=== PATIENT | male | born 1985 | race Caucasian/White ===

== ENCOUNTER 2019-06-19 15:27 | Emergency (ER) | payer SELFPAY ==
[2019-06-19 15:58] VITALS: BP 121/73
--- NOTE | 2019-06-19 16:34 | UC ---
Skin Complaint HPI - HPI Summary HPI Summary: 34-year-old male presents for an infection of the left foot. States 2 weeks ago started with itching and cracking of the skin between his toes which he assumed was athlete's foot. Over the past week he has started developing pain, redness, swelling, and a few blistered lesions that have opened and are draining clear fluid. History of staph infection in the same foot in the past. Patient moved to [facility] 1 week ago from [place] and does not currently have a PCP. Denies fever , chills, calf pain/tenderness, or leg swelling. - History of Current Complaint Chief Complaint: UCSkin Time Seen by Provider: 06/19/19 16:09 Stated Complaint: RASH Hx Obtained From: Patient Pain Intensity: 6 - Allergy/Home Medications Allergies/Adverse Reactions: Allergies Allergy/AdvReac Type Severity Reaction Status Date / Time No Known Allergies Allergy Verified 06/19/19 15:55 PMH/Surg Hx/FS Hx/Imm Hx Previously Healthy: Yes - Denies significant PMH - Surgical History Surgical History: None - Family History Known Family History: Positive: Non-Contributory - Social History Occupation: Unemployed Lives: Alone Alcohol Use: None Substance Use Type: None Smoking Status (MU): Heavy Every Day Tobacco Smoker Amount Used/How Often: 1-1 1/2ppd Household Exposure Type: Cigarettes Review of Systems All Other Systems Reviewed And Are Negative: Yes Constitutional: Negative: Fever, Chills Skin: Positive: Other - See HPI Respiratory: Negative: Shortness Of Breath Cardiovascular: Negative: Chest Pain Gastrointestinal: Positive: Negative Musculoskeletal: Negative: Arthralgia, Calf Tenderness, Decreased ROM Neurological: Positive: Negative Physical Exam - Summary Physical Exam Summary: GENERAL APPEARANCE: Well developed, well nourished, alert and cooperative, and appears to be in no acute distress. CARDIAC: Normal S1 and S2. No S3, S4 or murmurs. Rhythm is regular. There is no peripheral edema, cyanosis or pallor. Extremities are warm and well perfused. Capillary refill is less than 2 seconds. Peripheral pulses intact. LUNGS: Clear to auscultation without rales, rhonchi, wheezing or diminished breath sounds. ABDOMEN: Positive bowel sounds. Soft, nondistended, nontender. No guarding or rebound. No masses or hepatosplenomegally. MUSKULOSKELETAL: ROM intact to all extremities. No joint erythema or tenderness. Normal muscular development. Normal gait. EXTREMITIES: Interdigital erythema of the left foot with cracked and weeping skin. Mild erythema noted to the dorsal left foot with a red streak from the mid foot to ankle. Few scattered discrete vesicular lesions to the dorsal left foot with clear drainage. SKIN: Skin normal color, texture and turgor. Triage Information Reviewed: Yes Vital Signs: Initial Vital Signs Temp 99.2 F 06/19/19 15:52 Pulse 96 06/19/19 15:52 Resp 20 06/19/19 15:52 BP 121/73 06/19/19 15:52 Pulse Ox 100 06/19/19 15:52 Vital Signs Reviewed: Yes Course/Dx - Course Course Of Treatment: 34-year-old male presents for an infection of the left foot. States 2 weeks ago started with itching and cracking of the skin between his toes which he assumed was athlete's foot. Over the past week he has started developing pain, redness, swelling, and a few blistered lesions that have opened and are draining clear fluid. History of staph infection in the same foot in the past. Patient moved to [facility] 1 week ago from [place] and does not currently have a PCP. Denies fever , chills, calf pain/tenderness, or leg swelling. Afebrile. Vital signs stable. Patient had interdigital erythema of the left foot with cracked and weeping skin. Mild erythema noted to the dorsal left foot with a red streak from the mid foot to ankle. Few scattered discrete vesicular lesions to the dorsal left foot with clear drainage. Remainder of exam unremarkable. Discussed with the patient that he has likely developed a secondary bacterial infection on top of the tinea pedis. Will treat him with Bactrim DS 1 tab twice daily for 7 days as well as have him take fluconazole 150 mg weekly for 2 weeks to treat for the tinea infection. He is to follow up at the [facility] in 3-5 days for recheck of symptoms. Anticipatory guidance and warning symptoms reviewed with patient. Verbalizes understanding and agrees with POC. - Differential Diagnoses - Skin Complaint Differential Diagnoses: Cellulitis, Contact Dermatitis, Local Allergic Reaction , Tinea - Diagnoses Provider Diagnosis: Tinea pedis, Left foot infection Discharge ED - Sign-Out/Discharge Documenting (check all that apply): Patient Departure All imaging exams completed and their final reports reviewed: No Studies - Discharge Plan Condition: Stable Disposition: HOME Prescriptions: Fluconazole 150 mg PO WEEKLY #2 tablet Sulfamethox/Trimethoprim DS* [Bactrim DS 800/160 TAB*] 1 tab PO BID #14 tab Patient Education Materials: Cellulitis (ED), Skin Yeast Infection (ED) Referrals: No Primary Care Phys,NOPCP [Primary Care Provider] - [facility] [Outside] - 3 Days (Call for an appointment.) Additional Instructions: It appears you have developed a secondary bacterial infection on top of the athlete's foot. We will start you on an antibiotic for the infection. Start Bactrim DS 1 tab twice a day for 7 days. Wash your foot daily with a mild soap and water. Be sure to thoroughly dry the skin. Do not reuse the washcloth or towel without laundering. Take fluconazole 150 mg 1 tablet once a week for 2 weeks to treat the athlete's foot. Use acetaminophen (Tylenol) or ibuprofen (Advil, Motrin) according to directions as needed for pain. Follow up in the [facility] in 3-5 days for recheck of symptoms. Call first thing tomorrow for an appointment. Seek immediate medical attention in the emergency room if you develop a fever greater than 100.5 F, have severe pain not managed with pain medication, you have redness that rapidly spreads, swelling of the foot, or any worsening of symptoms. - Billing Disposition and Condition Condition: STABLE Disposition: Home
== END 2019-06-19 17:07 | disposition home or self-care (01) ==
LOC: UCEAST 15:27
DX: B35.3 Tinea pedis (principal); L08.9 Local infection of the skin and subcutaneous tissue, unspecified; R21 Rash and other nonspecific skin eruption; F17.210 Nicotine dependence, cigarettes, uncomplicated
CPT/HCPCS: 99202; G0463

== ENCOUNTER 2019-07-03 15:24 | Emergency (ER) | payer SELFPAY ==
[2019-07-03 15:32] VITALS: BP 117/67
--- NOTE | 2019-07-03 16:39 | UC ---
Skin Complaint HPI - HPI Summary HPI Summary: Patient is a 34yo male presenting with cousin and girlfriend for itching, burning, flaking of L toes and foot x2-3 weeks. Patient states he was seen here 2 weeks ago and treated for yeast infection with overlying bacterial infection. States he was given fluconazole and bactrim. Patient states symptoms improved for first few days but never went away, but that symptoms are worsening now. Patient notes watery drainage from a couple spots on dorsal foot. Denies purulent drainage and bleeding. Denies redness and swelling of foot. Denies pain up leg. Denies fever and chills. Denies n/v. Patient states he has been putting nailpolish on it because he heard that treats ringworm. Patient states he just moved here form [place] and does not have a pcp yet. Does note that he has a [facility] appt on Wednesday for recheck of his foot. - History of Current Complaint Chief Complaint: UCLowerExtremity Time Seen by Provider: 07/03/19 15:53 Stated Complaint: L FOOT PAIN Hx Obtained From: Patient Onset/Duration: Gradual Onset, Lasting Weeks Timing: Constant Current Severity: Moderate Pain Intensity: 6 Pain Scale Used: 0-10 Numeric - Allergy/Home Medications Allergies/Adverse Reactions: Allergies Allergy/AdvReac Type Severity Reaction Status Date / Time No Known Allergies Allergy Verified 07/03/19 15:32 Home Medications: Home Medications NK [No Home Medications Reported] 07/03/19 [History Confirmed 07/03/19] PMH/Surg Hx/FS Hx/Imm Hx - Surgical History Surgical History: None - Family History Known Family History: Positive: Non-Contributory - Social History Occupation: Employed Full-time Lives: With Family Alcohol Use: None Substance Use Type: None Smoking Status (MU): Heavy Every Day Tobacco Smoker Amount Used/How Often: 1-1 1/2ppd Household Exposure Type: Cigarettes Review of Systems All Other Systems Reviewed And Are Negative: No Constitutional: Positive: Negative Skin: Positive: Other - pruritic fungal rash on L foot/toes Respiratory: Positive: Negative Cardiovascular: Positive: Negative Gastrointestinal: Positive: Negative. Negative: Vomiting, Nausea Musculoskeletal: Positive: Negative Neurological: Positive: Negative Physical Exam Triage Information Reviewed: Yes Appearance: Well-Appearing, No Pain Distress, Well-Nourished Vital Signs: Initial Vital Signs Temp 99.8 F 11/11/19 15:26 Pulse 80 07/03/19 15:26 Resp 16 07/03/19 15:26 BP 117/67 07/03/19 15:26 Pulse Ox 100 07/03/19 15:26 Vital Signs Reviewed: Yes Eyes: Positive: Conjunctiva Clear ENT: Positive: Hearing grossly normal Neck: Positive: Supple Respiratory: Positive: No respiratory distress Cardiovascular: Positive: Pulses Normal - strong pedal pulses, Brisk Capillary Refill Musculoskeletal Exam: Normal Musculoskeletal: Positive: Strength Intact, ROM Intact, No Edema Neurological Exam: Other - sensation grossly intact Neurological: Positive: Alert Psychological: Positive: Age Appropriate Behavior Skin: Positive: Other - interdigital erythema and scaling noted of L toes. yellow discoloation, thickening, and crumbling noted of toenails, sole, and heel of L foot. multiple scabbed areas noted over toes from scratching. two small scaling lesion weeping minimal amount of serous fluid noted on dorsal forefoot. no signifcant erythema, or warmth. no red streaking. no obvious sign of bacterial infection Course/Dx - Course Course Of Treatment: I instructed the patient to soak the foot in warm epsom salt baths 2-3x daily and to apply clotrimazole cream twice daily for 2 weeks. Also directed the patient to attend his care [facility] appt on Wednesday for recheck. Educated on s/s of bacterial infection and to go to ED if they occur. I gave him derm referral and physician referral for follow up with symptoms persist. Patient voiced understanding and agreed with treatment plan. - Diagnoses Provider Diagnosis: Infection, fungal, left foot Discharge ED - Sign-Out/Discharge Documenting (check all that apply): Patient Departure All imaging exams completed and their final reports reviewed: No Studies - Discharge Plan Condition: Stable Disposition: HOME Patient Education Materials: Athlete's Foot (ED) Forms: *Work Release Referrals: Hugo Tarango MD [Medical Doctor] - If Needed [facility] [Outside] - 2 Weeks Additional Instructions: It is recommended that you soak your foot in warm water with epsom salt 2-3 times daily. Apply Lotrimin cream for Athlete's foot twice daily for 2 weeks after you soak the foot. You can find this over the counter. The generic version is clotrimazole and often cheaper. Follow up with your [facility] appointment on Wednesday for re-check of the foot. A dermatology referral is also listed below is your symptoms persist. Go to the emergency room is you experience severe pain, increasing redness of the foot, swelling, fever, or nausea and vomiting. Contact the physician referral listed below to receive your routine check up and establish yourself with a physician here in [place]. - Billing Disposition and Condition Condition: STABLE Disposition: Home - Attestation Statements Provider Attestation: patient not seen by me chart reviewed mary
== END 2019-07-03 16:41 | disposition home or self-care (01) ==
LOC: UCEAST 15:24
DX: B35.3 Tinea pedis (principal); F17.200 Nicotine dependence, unspecified, uncomplicated
CPT/HCPCS: 99211; G0463

== ENCOUNTER 2019-07-10 10:58 | Emergency (ER) | payer SELFPAY ==
--- NOTE | 2019-07-10 11:50 | ED ---
Lower Extremity - HPI Summary HPI Summary: Patient is a 34 y/o M presenting to the ED for a chief complaint of swelling in the left foot for the last month. Patient is present with family. For the last month, the patient has had left foot pain and swelling which has worsened since initial onset. The patient was previously seen at [facility] a few weeks ago and prescribed Bactrim, a cream for athlete's foot, and told to have Epsom salt baths for his left foot. Patient did not follow up with a PCP due to improvement of the left foot and changes to his insurance. He is currently complaining of erythema, swelling, itchiness, and pain in the left foot. Patient denies shortness of breath or chest pain. Patient denies any aggravating or alleviating factors. PMHx is significant for Lyme disease and FMHx is significant for cardiac disease and aneurysm, but denies any PSHx. Patient is a light every day smoker, but denies drug or alcohol use. - History of Current Complaint Chief Complaint: EDExtremityLower Stated Complaint: LT FOOT INF PER PT Time Seen by Provider: 07/10/19 11:42 Hx Obtained From: Patient Mechanism Of Injury: Other - None Onset of Pain: Immediate Onset/Duration: Still Present Severity Initially: Moderate Severity Currently: Moderate Pain Intensity: 6 Pain Scale Used: 0-10 Numeric Timing: Constant Associated Signs And Symptoms: Positive: Swelling, Redness, Other - Positive left foot pain and itchiness; negative chest pain or shortness of breath Aggravating Factor(s): Nothing Alleviating Factor(s): Nothing Able to Bear Weight: Yes - Allergies/Home Medications Allergies/Adverse Reactions: Allergies Allergy/AdvReac Type Severity Reaction Status Date / Time No Known Allergies Allergy Verified 07/10/19 11:04 Home Medications: Home Medications buPROPion SR TAB* [Wellbutrin SR TAB*] 150 mg PO BID 07/10/19 [History Confirmed 07/10/19] PMH/Surg Hx/FS Hx/Imm Hx Previously Healthy: Yes Endocrine/Hematology History: Reports: Other Endocrine/Hematological Disorders - Lyme disease Denies: Hx Diabetes Cardiovascular History: Denies: Hx Hypercholesterolemia, Hx Hypertension Sensory History: Denies: Hx Legally Blind, Hx Deafness Opthamlomology History: Denies: Hx Legally Blind EENT History: Denies: Hx Deafness - Surgical History Surgical History: None Surgery Procedure, Year, and Place: None Infectious Disease History: No Infectious Disease History: Denies: Traveled Outside the [place] in Last 30 Days - Family History Known Family History: Positive: Cardiac Disease, Other - Aneurysm - Social History Occupation: Unemployed Lives: With Family Alcohol Use: None Hx Substance Use: No Substance Use Type: Reports: None Hx Tobacco Use: Yes Smoking Status (MU): Light Every Day Tobacco Smoker Amount Used/How Often: 1-1 1/2ppd Review of Systems Negative: Chest Pain Negative: Shortness Of Breath Positive: Myalgia - Left foot, Edema - Left foot Positive: Other - Positive erythema and itchiness of left foot All Other Systems Reviewed And Are Negative: Yes Physical Exam - Summary Physical Exam Summary: VITAL SIGNS: Reviewed. GENERAL: Patient is a well-developed and nourished MALE who is lying comfortable in the stretcher. Patient is not in any acute respiratory distress. HEAD AND FACE: No signs of trauma. No ecchymosis, hematomas or skull depressions. No sinus tenderness. EYES: PERRLA, EOMI x 2, No injected conjunctiva, no nystagmus. EARS: Hearing grossly intact. Ear canals and tympanic membranes are within normal limits. MOUTH: Oropharynx within normal limits. NECK: Supple, trachea is midline, no adenopathy, no JVD, no carotid bruit, no c- spine tenderness, neck with full ROM. CHEST: Symmetric, no tenderness at palpation. LUNGS: Clear to auscultation bilaterally. No wheezing or crackles. CVS: Regular rate and rhythm, S1 and S2 present, no murmurs or gallops appreciated. ABDOMEN: Soft, non-tender. No signs of distention. No rebound, no guarding, and no masses palpated. Bowel sounds are normal. EXTREMITIES: FROM in all major joints, no edema, no cyanosis or clubbing. NEURO: Alert and oriented x 3. No acute neurological deficits. Speech is normal and follows commands. SKIN: Dry and warm. Erythema in the left dorsal aspect of the left foot and the left toes. Good pulses and capillary refill. Triage Information Reviewed: Yes Vital Signs On Initial Exam: Initial Vitals Temp Pulse Resp BP Pulse Ox 98.9 F 89 15 133/87 98 07/10/19 11:00 07/10/19 11:00 07/10/19 11:07/10/19 11:00 07/10/19 11:00 Vital Signs Reviewed: Yes Procedures - Sedation Patient Received Moderate/Deep Sedation with Procedure: No Diagnostics - Vital Signs Vital Signs Temp Pulse Resp BP Pulse Ox 07/10/19 11:00 98.9 F 89 15 133/87 98 - Laboratory Result Diagrams: 07/10/19 12:34 07/10/19 12:34 Lab Statement: Any lab studies that have been ordered have been reviewed, and results considered in the medical decision making process. Lower Extremity Course/Dx - Course Assessment/Plan: Patient is a 35-year-old male who presents to the emergency department with a chief complaint of redness, pain, and swelling in the left foot. Blood test results are without any significant abnormality. I believe that the patient has a localized infection and cellulitis. Therefore the patient will be given a prescription for Keflex and discharged home to follow- up with his primary care physician. I discussed all the findings and test results with the patient. Patient was instructed to return to the emergency room immediately if any of the symptoms return or worsen. Plan of care was discussed with the patient who understands and agrees. All questions were answered at the patient's satisfaction. There were no further complaints or concerns. Lung exam before discharge: CTA B/L. Good air exchange. No wheezing or crackles heard. CVS: S1 and S2 present. No murmurs appreciated. Patient is alert and oriented x 3. Patient is hemodynamically stable. Patient will be discharged home to follow up with his PCP in the next 2-3 days. - Diagnoses Provider Diagnoses: Cellulitis Discharge ED - Sign-Out/Discharge Documenting (check all that apply): Patient Departure - Discharge - Discharge Plan Condition: Stable Disposition: HOME Prescriptions: Cephalexin CAP* [Keflex CAP*] 500 mg PO QID #40 cap Patient Education Materials: Cellulitis (ED) Referrals: [facility] [Outside] Additional Instructions: FOLLOW UP WITH YOUR PRIMARY CARE PROVIDER WITHIN 3 DAYS. RETURN TO THE ED FOR ANY WORSENING OR NEW SYMPTOMS. - Billing Disposition and Condition Condition: STABLE Disposition: Home - Attestation Statements Document Initiated by Scribe: Yes Documenting Scribe: Clare Milton Provider For Whom Scribe is Documenting (Include Credential): Surjit Camejo MD Scribe Attestation: IClare, scribed for Surjit Camejo MD on 07/10/19 at 1802. Scribe Documentation Reviewed: Yes Provider Attestation: The documentation as recorded by the scribe, Clare Milton accurately reflects the service I personally performed and the decisions made by me, Surjit Camejo MD Status of Scribe Document: Viewed
[2019-07-10 12:47] LABS: ABS Basophils 0.1 10^3/ul (0-0.2); ABS Eosinophils 0.5 10^3/ul (0-0.6); ABS Lymphocytes 2.1 10^3/ul (1.0-4.8); ABS Monocytes 0.7 10^3/ul (0-0.8); ABS Neutrophils 5.1 10^3/ul (1.5-7.7); Eosinophil % 5.7 %; Hematocrit 48 % (42-52); Hemoglobin 16.5 g/dL (14.0-18.0); Lymphocyte % 25.2 %; Mean Corpuscular HGB Conc 35 g/dL (31-36); Mean Corpuscular Hemoglobin 32 pg (27-31); Mean Corpuscular Volume 93 fL (80-94); Mean Platelet Volume 8.8 fL (7.4-10.4); Nucleated Red Blood Cells % 0.2; Platelet Count 245 10^3/uL (150-450); Red Blood Count 5.15 10^6 /uL (4.18-5.48); Red Cell Distribution Width 13 % (10-15); White Blood Count 8.5 10^3/uL (3.5-10.8)
[2019-07-10 13:01] LABS: Albumin 4.5 g/dL (3.2-5.2); Albumin/Globulin Ratio 1.4 (1-3); BUN/Creatinine Ratio 10.2 (8-20); C Reactive Protein 2.51 mg/L (<8.01); Calcium 9.9 mg/dL (8.6-10.3); EGFR African American 107.3 (>60); EGFR Non-African American 88.6 (>60); Globulin 3.3 g/dL (2-4); Potassium 4.4 mmol/L (3.5-5.0); Total Bilirubin 0.5 mg/dL (0.2-1.0); Total Protein 7.8 g/dL (6.4-8.9)
[2019-07-10 13:32] LABS: Urine Appearance Clear; Urine Color Yellow; Urine Ketones Negative (Negative); Urine Protein Negative (Negative); Urine Urobilinogen Negative (Negative)
[2019-07-10 13:33] LABS: Urine Bilirubin Negative (Negative); Urine Blood Negative (Negative); Urine Glucose Negative (Negative); Urine Nitrite Negative (Negative)
[2019-07-10 13:40] LABS: Urine Bacteria Absent (Absent); Urine Red Blood Cell Trace(0-2/hpf) (Absent); Urine White Blood Cell Trace(0-5/hpf) (Absent)
[2019-07-10] MEDS ORDERED: Ibuprofen TAB* 800 MG PO ONE (13:43)
[2019-07-10 13:45] LABS: HIV 4th Generation Nonreactive (Nonreactive)
[2019-07-10] MEDS ORDERED: Cephalexin CAP* 500 MG PO ONE (13:45)
[2019-07-10 14:10] VITALS: BP 118/78
== END 2019-07-10 14:09 | disposition home or self-care (01) ==
LOC: ED 10:58
DX: R60.9 Edema, unspecified (principal); L03.90 Cellulitis, unspecified; F17.210 Nicotine dependence, cigarettes, uncomplicated
CPT/HCPCS: 36415; 80053; 81003; 81015; 83605; 85025; 86140; 87086; 87389; 99282; A9270-GY